=== PATIENT | female | born 2005 | race Caucasian/White ===

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

== ENCOUNTER 2024-03-02 14:15 | Emergency (ER) | payer MEDICAID, OTHER ==
[~2024-03-02] VITALS: Ht 154.9 cm; Wt 71.8 kg
[~2024-03-02 14:15] MED LIST changes: -GLYCOPYRROLATE INJ 0.2 MG/ML 2 ML VIAL As Ordered ONE; -KETOROLAC 60MG 2ML VIAL As Ordered ONE; -LIDOCAINE 2% 100MG/5ML SDV (FOR ANES.) As Ordered ONE; -LR 1,000 ML IV SCH; -MIDAZOLAM INJ 2MG/2ML VIAL As Ordered ONE; -ONDANSETRON 4MG 2ML VIAL As Ordered ONE; +TRAM50TA2 PO; -fentaNYL 100 MCG/2 ML INJECTION As Ordered ONE; -propofoL 200 MG/20 ML VIAL As Ordered ONE
[2024-03-02] MEDS ORDERED: BUPR150T12 (14:27)
[2024-03-02] MEDS: ACETAMINOPHEN TAB 650MG DOSE (2X325MG) PO ONE (15:36)
[2024-03-02 15:43] VITALS: BP 107/58; TEMP 97.7; O2SAT 98
== END 2024-03-02 15:45 | disposition home or self-care (01) ==
LOC: M ED 14:15
DX: S06.0X0A Concussion without loss of consciousness, initial encounter (principal); S00.532A Contusion of oral cavity, initial encounter; W21.07XA Struck by softball, initial encounter; Z79.899 Other long term (current) drug therapy; Z88.1 Allergy status to other antibiotic agents; Z88.8 Allergy status to other drugs, medicaments and biological substances; Y92.9 Unspecified place or not applicable; Y93.89 Activity, other specified; Y99.9 Unspecified external cause status

== ENCOUNTER → 2024-04-01 | Outpatient (CLI) | payer OTHER ==
[~2024-04-01] MED LIST changes: +BUPR150T12
[2024-04-01 10:36] LABS: ALBUMIN 4.1 G/DL (3.2-5.2); ALKALINE PHOSPHATASE 76 U/L (46-116); ALT/SGPT 15 U/L (7.0-40); AST/SGOT < 8 U/L (<34); BILIRUBIN,TOTAL 0.3 MG/DL (0.3-1.2); BLOOD UREA NITROGEN 12 MG/DL (9-23); CALCIUM LEVEL 9.6 MG/DL (8.5-10.1); CARBON DIOXIDE LEVEL 30 MMOL/L (20-31); CHLORIDE LEVEL 107 MMOL/L (98-107); CHOLESTEROL LEVEL 131 MG/DL (<200); CHOLESTEROL RISK RATIO 3.36 (<5); CREATININE FOR GFR 0.81 MG/DL (0.55-1.30); GLUCOSE, FASTING 84 MG/DL (60-100); HDL CHOLESTEROL 38.9 MG/DL (>40); LDL CHOLESTEROL 75.5 MG/DL (<100); NON-HDL-C 92.1 MG/DL; POTASSIUM SERUM 4.1 MMOL/L (3.5-5.1); SODIUM LEVEL 142 MMOL/L (136-145); TOTAL PROTEIN 6.9 G/DL (5.7-8.2); TRIGLYCERIDES LEVEL 83 MG/DL (<150)
[2024-04-01 10:41] LABS: LUTEINIZING HORMONE 11.9 mIU/ML
== END ==
LOC: M PLALAB 07:43
PROVIDERS: ATTEND Family Medicine
DX: E28.2 Polycystic ovarian syndrome (principal); Z83.3 Family history of diabetes mellitus; Z13.220 Encounter for screening for lipoid disorders

== ENCOUNTER → 2024-05-08 | Outpatient (REF) | payer OTHER, MEDICAID ==
[~2024-05-08] MED LIST changes: +BUSP10TA
== END ==
LOC: M SFHCPLAZ 17:01
PROVIDERS: ATTEND Physician Assistant Medical
DX: K14.3 Hypertrophy of tongue papillae (principal)

== ENCOUNTER → 2024-06-04 | Outpatient (CLI) | payer OTHER ==
[~2024-06-04] MED LIST changes: -BUSP10TA
[2024-06-04 12:53] LABS: GC DNA AMPLIFICATION NEGATIVE (NEGATIVE)
== END ==
LOC: M PLALAB 08:33
PROVIDERS: ATTEND Family Medicine
DX: J06.9 Acute upper respiratory infection, unspecified (principal)

== ENCOUNTER 2024-06-16 17:31 | Emergency (ER) | payer OTHER ==
[~2024-06-16] VITALS: Ht 154.9 cm; Wt 69.5 kg
[2024-06-16] MEDS ORDERED: BUSP10TA (17:44)
[2024-06-16 18:53] LABS: BASO % 0.2 % (0.0-1.0); EOS % 0.1 % (0.0-3.0); HEMATOCRIT 40.9 % (36.0-47.0); HEMOGLOBIN 14.3 g/dl (12.0-15.5); LYMPH # 2.1 10^3/uL (1.5-5.0); MEAN CORPUSCULAR HEMOGLOBIN 29.4 pg (27.0-33.0); MEAN CORPUSCULAR VOLUME 84.2 fl (80.0-96.0); MONO # 0.6 10^3/uL (0.0-0.8); MONO % 3.3 % (2.0-8.0); NEUTROPHILS # 16.2 10^3/uL (1.5-8.5); NEUTROPHILS % 84.8 % (36.0-66.0); PLATELET COUNT, AUTOMATED 309 10^3/uL (150-450); RED BLOOD COUNT 4.86 10^6/uL (4.00-5.40); WHITE BLOOD COUNT 19.1 10^3/uL (4.0-10.0)
[2024-06-16 19:25] LABS: ETHYL ALCOHOL (ETHANOL) < 0.003 % (0.000-0.010)
[2024-06-16 19:27] LABS: ALBUMIN 4.5 G/DL (3.2-5.2); ALKALINE PHOSPHATASE 106 U/L (46-116); ALT/SGPT 14 U/L (7.0-40); AST/SGOT 10 U/L (<34); BILIRUBIN,DIRECT < 0.1 MG/DL (<0.4); BILIRUBIN,TOTAL 0.3 MG/DL (0.3-1.2); BLOOD UREA NITROGEN 11 MG/DL (9-23); CALCIUM LEVEL 10.1 MG/DL (8.5-10.1); CARBON DIOXIDE LEVEL 28 MMOL/L (20-31); CHLORIDE LEVEL 107 MMOL/L (98-107); CREATININE FOR GFR 0.73 MG/DL (0.55-1.30); GLUCOSE, FASTING 96 MG/DL (60-100); MAGNESIUM LEVEL 2.4 MG/DL (1.8-2.4); POTASSIUM SERUM 3.8 MMOL/L (3.5-5.1); SODIUM LEVEL 139 MMOL/L (136-145)
[2024-06-16 19:31] LABS: HCG, SERUM QUALITATIVE NEGATIVE (NEGATIVE)
[2024-06-16 20:11] LABS: AMPHETAMINES LEVEL URINE NEGATIVE (NEGATIVE); BARBITURATES URINE NEGATIVE (NEGATIVE); BENZODIAZEPINES URINE NEGATIVE (NEGATIVE); CANNABINOIDS URINE NEGATIVE (NEGATIVE); COCAINE METABOLITE URINE NEGATIVE (NEGATIVE); METHADONE URINE NEGATIVE (NEGATIVE); OPIATES URINE NEGATIVE (NEGATIVE); PHENCYCLIDINE URINE NEGATIVE (NEGATIVE)
[2024-06-16 23:37] VITALS: BP 113/67; TEMP 96.8; O2SAT 99
== END 2024-06-16 23:41 | disposition home or self-care (01) ==
LOC: M ED 17:31
DX: G40.909 Epilepsy, unspecified, not intractable, without status epilepticus (principal); F12.10 Cannabis abuse, uncomplicated; F10.10 Alcohol abuse, uncomplicated; F17.200 Nicotine dependence, unspecified, uncomplicated; Z88.1 Allergy status to other antibiotic agents; Z88.8 Allergy status to other drugs, medicaments and biological substances; Z79.899 Other long term (current) drug therapy

== ENCOUNTER → 2024-11-07 | Outpatient (CLI) | payer OTHER, MEDICAID ==
[~2024-11-07] MED LIST changes: +BUSP10TA
== END ==
LOC: M SOG 08:03
PROVIDERS: ATTEND Physician Assistant
DX: M25.571 Pain in right ankle and joints of right foot (principal)

== ENCOUNTER 2024-11-28 14:30 | Outpatient (RCR) | payer OTHER | END 2024-12-01 | LOC: M PT 14:30 | PROVIDERS: ATTEND Physician Assistant | DX: M25.571 Pain in right ankle and joints of right foot (principal) ==

== ENCOUNTER → 2025-08-29 | Outpatient (REF) | payer OTHER, MEDICAID | LOC: M LAB REF 17:22 | PROVIDERS: ATTEND Physician Assistant Medical | DX: J06.9 Acute upper respiratory infection, unspecified (principal); Z20.828 Contact with and (suspected) exposure to other viral communicable diseases ==